=== PATIENT | female | born 1980 | race Caucasian/White ===

== ENCOUNTER 2016-03-17 05:41 | Emergency (ER) | payer OTHER ==
[~2016-03-17] VITALS: Ht 172.7 cm; Wt 111.4 kg
[~2016-03-17 05:41] MED LIST: ASCO-294 PO; CEPH-512 PO; DOCU-41 PO; FERR-83 PO; FOLI1TAB18 PO; HYDR-4003 PO; IBUP800T28 PO; MAGN400T4 PO; PNV91TAB3 PO
[2016-03-17 05:45] VITALS: BP 129/94; PULSE 83; RESP 18; O2SAT 97
--- NOTE | 2016-03-17 06:12 | ED.REPORT ---
HPI-Headache Date of Service Mar 17, 2016 ED Provider: Getachew Gasca MD The patient is a 35 year old female with history of migraines who presents to the emergency department complaining of a headache that began suddenly 2 hours prior to arrival. Her pain is located behind her eyes. She describes the pain as "throbbing" and "sharp." She has also experienced nausea, vomiting, and photophobia. Her pain is similar to her previous migraines. She has not taken any medication to alleviate her symptoms. She has not fallen or hit her head. She is not taking any blood thinners. She denies vision changes, numbness, tingling, weakness, confusion. Her LNMP was 2 weeks ago. Nursing Notes Stated Complaint: HEADACHE Chief Complaint: Headache Nursing Notes Reviewed: Yes Allergies: Coded Allergies: oxycodone HCl (Verified Allergy, Mild, vomiting, 03/17/16) marijuana (Verified Allergy, Unknown, seizure, breathing problems, 03/17/16 ) Uncoded Allergies: CONTROL PILL (Allergy, Mild, RASH, 07/05/14) Scheduled Ascorbate Calcium (Vitamin C) 500 Mg Tablet 500 MG PO DAILY Take with Iron. Cephalexin (Keflex) 500 Mg Capsule 500 MG PO TID Cephalexin (Keflex) 500 Mg Capsule 500 MG PO QID Ferrous Sulfate (Ferrous Sulfate) 325 Mg Tablet 325 MG PO DAILY Folic Acid (Folic Acid) 1 Mg Tablet 1 MG PO DAILY Magnesium Oxide (Magnesium Oxide) 400 Mg Tablet 400 MG PO BID Scheduled PRN Docusate Sodium (Colace) 100 Mg Capsule 100 MG PO BID PRN PRN For Constipation Hydrocodone-Acetaminophen 5-325 mg (Hydrocodone-Acetaminophen 5-325 mg) 1 Each Tablet 1 TABLET PO Q6H PRN PRN For Pain Ibuprofen (Ibuprofen) 800 Mg Tablet 800 MG PO TID PRN PRN For Pain Ondansetron ODT (Zofran ODT) 4 Mg Tablet 4 MG PO Q4H PRN PRN For Nausea Miscellaneous Medications Pnv95/Ferrous Fumarate/FA ( Caplet) 28 Mg Iron-800 Mcg Tablet 1 EACH PO General Time Seen by MD: 06:10 Chief Complaint Headache Hx Obtained From: Patient Arrived By: Walk-in Sudden in Onset?: Yes Onset Occurred: 1 - 4 hours ago Symptom Duration: Since onset Location: : Retro orbital Quality: Painful, Sharp, Throbbing Severity: Current: Moderate Severity: Maximum: Moderate Recent Healthcare: No recent hospitalization Similar Sx Previous: Yes Past Medical History Past Medical History R ectopic PCOS Nephrolithiasis Kidney infection x1 Ovarian cyst summer 2013, with hospitalization for possible rupture Seizure (last 2012) site infection Migraines Past Surgical History Shoulder surgery Reports: , Cholecystectomy, Tonsillectomy Family History Noncontributory Smoking History Former Smoker Social History Alcohol Use: "Social" Drug Use: Denies drug use Other Social History: Local resident Occupation lives with boyfriend, work at [employer] Ambulatory Status Independent Review of Systems Eyes: Reports: Photophobia, Denies: Blurred bilateral, Diplopia, Visual loss bilateral GI: Reports: Nausea, Vomiting Neurologic: Reports: Headache, Denies: Confusion, Focal weakness, Numbness, Problem walking, Slurred speech , Vision change, Weakness Complete sys rev & neg: except as marked. Physical Exam Initial Vital Signs Vital Signs (First) Date Time Temp Pulse Resp B/P Pulse Ox O2 Delivery O2 Flow Rate FiO2 03/17/16 05:45 36.8 83 18 129/94 97 Room Air Initial VS: Reviewed ENT: Mucous membranes moist, Conjunctiva normal, No scleral icterus Respiratory: Breath sounds normal, Clear to auscultation, No respiratory distress Cardiovascular: Regular rate & rhythm, Heart sounds normal, Intact distal pulses Abdomen / GI: Soft, Non-tender, No guarding, No rebound, No distention Lymphatic: No lymphadenopathy Extremities: Vascular intact, Neuro intact, No swelling, No tenderness Skin: Warm, Dry, No cyanosis Psychiatric: Mood/affect normal, Behavior normal, Normal thought content General/Constitutional: Awake, Alert Head / Eyes: Atraumatic, Normocephalic, PERRL, EOMI, No nystagmus, No photophobia, Conjunctiva NL, Temporal arteries NL Neck: Atraumatic, Supple, No meningismus, Full range of motion, No swelling, Non-tender, No masses Neurologic: Oriented X3, Speech NL, No motor deficits, No sensory deficits, CN II - XII intact, Cerebellar NL, Memory NL Speech is fluent Lower Extremity / Pelvis / MS: No swelling, Non-tender, Neurologic intact, Vascular intact, No edema No calf swelling or tenderness. Re-Eval/Medical Decision Med Decision/Clinical Course In summary, the patient is a 35-year-old female with past medical history significant for migraine headaches, who presents with headache that is typical in nature to her previous migraines. Our primary and secondary assessment reveals an awake, alert patient in no acute distress. Hemodynamically stable and afebrile. Exam reveals normal neurologic exam. Suspect the patient's headache represents a migraine or tension type headache. Considered other causes of headache to include: Subdural hemorrhage, subarachnoid hemorrhage, [employer] tumor, meningitis, encephalitis, venous sinus thrombosis, dissection, temporal arteritis, intracranial hypertension ( psuedotumor cerebri), sinusitis or cervicalgia, although these are less likely based on the history, exam findings as noted above. Based on this, I feel that further imaging would be low yield and is not warranted at this time. Here in the emergency department the patient was treated with 1 L of normal saline, 30 mg of IV Toradol, 25 mg of IV Benadryl and 10 mg of IV Reglan. Thereafter, she reported significant subjective improvement. Discussed the risks and benefits of this with the patient who is in agreement. Also discussed with the patient at length that if symptoms change, worsen, or persist, should return to the ER for reevaluation. They understand and agree with the plan. Given the patient's workup, feel they are safe for discharge. Source of Hx: Old records Re-Evaluation/Progress : Time of Eval: 07:24 Re-Evaluation/Progress Note: Rechecked the patient, she is feeling much better. Discussed plan for discharge. All questions were addressed. Counseled Regarding: Diagnosis, Need for follow-up, When/why to return to ED Discharge & Departure Impression: Primary Impression: Migraine Migraine type: unspecified Status migrainosus presence: without status migrainosus Intractability: not intractable Qualified Code: G43.909 - Migraine, unspecified, not intractable, without status migrainosus Additional Impressions: Nausea Light sensitivity Disposition: Home Discharge Condition All VS Reviewed: Yes Condition: Stable Patient Instructions: Migraine Headache (ED) Additional Instructions: Thank you for seeking care at the emergency room. It is difficult for us to make definitive diagnoses in the ED but we believe that you are experiencing your typical migraine Our primary goal today in the ED was to evaluate you for any life-threatening conditions. Your evaluation was reassuring. You will be discharged with a prescription for Zofran. You should follow-up with your primary doctor in the next week. You should return to the ED immediately if you develop increased pain, vomiting , fever, vision changes, dizziness, lightheadedness, numbness, weakness or any other concerning signs or symptoms. Thank you for letting us partake in your care today. Referrals: Lit Diaz MD (Family) Scribe Attestation Portions of this note were transcribed by Dinorah Collins. I, Dr. Gasca personally performed the history, physical exam and medical decision-making; I reviewed and confirmed the accuracy of the information in the transcribed note. Signed by: Deisi Baer, 03/17/2016 and 0730. Getachew Gasca MD Mar 17, 2016 06:12 Dinorah Collins Mar 17, 2016 06:27
[2016-03-17] MEDS ORDERED: 0.9% Sodium Chloride 1,000 ML IV ONE (06:37)
[2016-03-17] MEDS ORDERED: MetoCLOpramide 5 mg/mL 2 mL Inj IVPUSH ONE (06:40)
[2016-03-17 06:59] VITALS: BP 123/80; PULSE 80; RESP 12
[2016-03-17] MEDS ORDERED: ONDA4TAB9 PO (07:21)
[2016-03-17 07:41] VITALS: BP 122/72; PULSE 56; RESP 16
== END 2016-03-17 07:40 | disposition home or self-care (01) ==
LOC: SED 05:41
DX: G43.909 Migraine, unspecified, not intractable, without status migrainosus (principal); R11.0 Nausea; H53.149 Visual discomfort, unspecified; Z87.891 Personal history of nicotine dependence; Z88.5 Allergy status to narcotic agent; Z88.8 Allergy status to other drugs, medicaments and biological substances
CPT/HCPCS: 96361; 96374; 96375; 99284; J1200; J2765; J7030

== ENCOUNTER 2016-04-05 19:47 | Emergency (ER) | payer OTHER ==
[~2016-04-05] VITALS: Ht 172.7 cm; Wt 110.5 kg
[~2016-04-05 19:47] MED LIST changes: +ONDA4TAB9 PO
[2016-04-05 19:55] VITALS: BP 132/82; PULSE 79; RESP 16; O2SAT 99
[2016-04-05 21:39] LABS: BASOPHILS % (AUTO) 0.4 % (0-3); EOSINOPHILS % (AUTO) 2.5 % (0-5); MONOCYTES % (AUTO) 7.2 % (4-12); Mean Corpuscular Hemoglobin 29.7 pg (27.0-35.0); Mean Corpuscular Volume 86.8 fL (81-100); NEUTROPHILS % (AUTO) 61.9 % (40-74); Platelet Count 398 bil/L (150-400)
[2016-04-05] MEDS ORDERED: HYDROmorphone 0.5 mg/0.5 mL iSecure Syringe IVPUSH ONE (21:50)
[2016-04-05] MEDS ORDERED: MetoCLOpramide 5 mg/mL 2 mL Inj IVPUSH ONE (21:50)
[2016-04-05] MEDS ORDERED: 0.9% Sodium Chloride 1,000 ML IV ONE (21:50)
--- NOTE | 2016-04-05 21:53 | ED.REPORT ---
HPI-Headache Date of Service Apr 05, 2016 ED Provider: Jefferson Jason DO A 35 year old female with a medical history including migraines, PCOS, and seizures presents to the ED from urgent care with a worsening headache that began "a couple of days ago." The pain is centralized behind her left eye with radiation to her face and associated photophobia. This headache is dissimilar from her previous migraines. Nursing Notes Stated Complaint: L SIDE HEAD/FACE PAIN Chief Complaint: Head, Face, Neck Trauma Nursing Notes Reviewed: Yes Allergies: Coded Allergies: oxycodone HCl (Verified Allergy, Mild, vomiting, 03/17/16) marijuana (Verified Allergy, Unknown, seizure, breathing problems, 03/17/16 ) Uncoded Allergies: CONTROL PILL (Allergy, Mild, RASH, 07/05/14) Scheduled Ascorbate Calcium (Vitamin C) 500 Mg Tablet 500 MG PO DAILY Take with Iron. Cephalexin (Keflex) 500 Mg Capsule 500 MG PO TID Cephalexin (Keflex) 500 Mg Capsule 500 MG PO QID Ferrous Sulfate (Ferrous Sulfate) 325 Mg Tablet 325 MG PO DAILY Folic Acid (Folic Acid) 1 Mg Tablet 1 MG PO DAILY Magnesium Oxide (Magnesium Oxide) 400 Mg Tablet 400 MG PO BID Scheduled PRN Docusate Sodium (Colace) 100 Mg Capsule 100 MG PO BID PRN PRN For Constipation Hydrocodone-Acetaminophen 5-325 mg (Hydrocodone-Acetaminophen 5-325 mg) 1 Each Tablet 1 TABLET PO Q6H PRN PRN For Pain Ibuprofen (Ibuprofen) 800 Mg Tablet 800 MG PO TID PRN PRN For Pain Ondansetron ODT (Zofran ODT) 4 Mg Tablet 4 MG PO Q4H PRN PRN For Nausea Miscellaneous Medications Pnv95/Ferrous Fumarate/FA ( Caplet) 28 Mg Iron-800 Mcg Tablet 1 EACH PO General Time Seen by MD: 21:37 Chief Complaint Headache Hx Obtained From: Patient Arrived By: Walk-in Sudden in Onset?: No Onset Occurred: 3 days ago ("a couple of days") Symptom Duration: Since onset Location: : Frontal left: Retro orbital Quality: Painful Severity: Current: Moderate Severity: Maximum: Moderate Associated with: Reports: Photophobia, Denies: Fever Pertinent Negative: Relieved by nothing Related History: Reports: Headache, migraine hx, Seizure disorder Recent Healthcare: Recent doctor visit Similar Sx Previous: No Past Medical History Past Medical History R ectopic PCOS Nephrolithiasis Kidney infection x1 Ovarian cyst summer 2013, with hospitalization for possible rupture Seizure (last 2012) site infection Migraines Past Surgical History Shoulder surgery Reports: , Cholecystectomy, Tonsillectomy Family History Noncontributory Smoking History Former Smoker Social History Alcohol Use: "Social" Drug Use: Denies drug use Other Social History: Local resident Occupation lives with boyfriend, work at [employer] Ambulatory Status Independent Review of Systems Review of Systems Note: + Left-sided facial pain Constitutional: Denies: Fever Eyes: Reports: Photophobia GI: Denies: Diarrhea, Vomiting Neurologic: Reports: Headache Complete sys rev & neg: except as marked. Respiratory: Denies: Non-productive cough, Shortness of breath Physical Exam Initial Vital Signs Vital Signs (First) Date Time Temp Pulse Resp B/P Pulse Ox O2 Delivery O2 Flow Rate FiO2 04/05/16 19:55 36.4 79 16 132/82 99 Room Air Initial VS: Reviewed ENT: Conjunctiva normal, No scleral icterus Respiratory: Breath sounds normal, Clear to auscultation, No respiratory distress Cardiovascular: Regular rate & rhythm, Heart sounds normal Skin: Warm, Dry, No cyanosis Psychiatric: Mood/affect normal, Behavior normal, Normal thought content General/Constitutional: Awake, Alert Head / Eyes: Atraumatic, Normocephalic, PERRL, EOMI Neck: Supple, Full range of motion Neurologic: Oriented X3, Speech NL, No motor deficits, No sensory deficits, CN II - XII intact Interpretation & Diagnostics Lab Results Interpretation Result Diagram: 04/05/16212904/05/162129 Test 04/05/16 21:30 White Blood Count 7.2th/mm3 (3.8-10.1) Red Blood Count 4.54mil/mm3 (3.90-5.20) Hemoglobin 13.5g/dL (12.0-15.6) Hematocrit 39.4% (35.0-46.0) Mean Corpuscular Volume 86.8fL (81-100) Mean Corpuscular Hemoglobin 29.7pg (27.0-35.0) Mean Corpuscular Hemoglobin Concent 34.3% (32.0-37.0) Red Cell Distribution Width 13.0% (12.3-15.4) Platelet Count 398bil/L (150-400) Neutrophils (%) (Auto) 61.9% (40-74) Lymphocytes (%) (Auto) 27.9% (14-46) Monocytes (%) (Auto) 7.2% (4-12) Eosinophils (%) (Auto) 2.5% (0-5) Basophils (%) (Auto) 0.4% (0-3) Sodium Level 140mEq/L (134-144) Potassium Level 4.0mEq/L (3.5-5.2) Chloride Level 101mEq/L (97-108) Carbon Dioxide Level 26mmol/L (18-29) Blood Urea Nitrogen 11mg/dL (6-20) Creatinine 0.75mg/dL (0.57-1.00) Estimat Glomerular Filtration Rate 127mL/min (>59) Glucose Level 96mg/dL (60-99) Calcium Level 9.0mg/dL (8.5-10.1) CT Head Interpretation CONCLUSION: Normal CT of the head without contrast. Transmitted to the ED by Musa Del Angel M.D. at 04/05/2016 - 11:52:45 PM PST Study: Head CT no contrast Interpretation / Wet Read by: Interpret - Radiologist Re-Eval/Medical Decision Med Decision/Clinical Course Gutierrez was medicated and her headache had some relief. It was down to a 6 out of 10. Her something about this that she just does not seem like a classic migraine however meningitis seems unlikely as well. Subarachnoid hemorrhage seems unlikely as well. She was discharged feeling somewhat better. I spoke with her the next day and the headache had returned. She has been taking ibuprofen. The pain seems to now come from the left side of her neck and the left side of her face. Perhaps she is dealing with a pinched nerve or something. Either way she is not been afforded much relief. This is atypical for her. I talked her about a lumbar puncture and she does not wish to undergo that at this time. I think that is reasonable considering she does not have a fever and she certainly did not have nuchal rigidity and she has a normal head CT. I am going to prescribe her Imitrex 25 mg tablets 1 every 8 hours as needed #15. [place] 06/19/2024 one to 2 every 6 hours as needed for the neck pain. 25 of these were prescribed. And 15 Zofran 4 mg tablets were provided prescribed as well. I told her not to breast-feed while she is taking any of this. Not to drive or drink alcohol consume acetaminophen while taking the [place]. She is going to send her significant other Joseluis and to pharmacy picking technician these prescriptions. He plans on pumping and wasting the breast milk while she is on these medications. She is going to feed her infant formula. She will not drivable taken the [place]. She will also call her doctor on Friday for follow- up this week for further evaluation of her headache syndrome. She did agree to return if she rubs a fever, neck stiffness or a thunderclap headache. Source of Hx: Old records Re-Evaluation/Progress : Time of Eval: 00:20 )( Patient Status: Condition improved, Moderate relief Re-Evaluation/Progress Note: Patient's pain has improved. Discussed with patient CT and lab results, diagnosis, and plan for discharge. Follow-up and return to the ER instructions given. Patient agrees with plan for care and all questions were addressed. Counseled Regarding: Diagnosis, Lab results, Need for follow-up, When/why to return to ED Discharge & Departure Impression: Primary Impression: Headache Headache type: unspecified Headache chronicity pattern: unspecified pattern Intractability: not intractable Qualified Code: R51 - Headache Disposition: Home Discharge Condition All VS Reviewed: Yes Condition: Stable Patient Instructions: Acute Headache (ED) Additional Instructions: Thank you for entrusting us with your care. Your labs and CT scan were reassuring. Rest tonight. Drink plenty of liquids to remain hydrated. Call your primary care provider tomorrow for a follow-up appointment. Return to the ER with any new or worsening symptoms including fever or thunderclap headache. Referrals: NOPCP (PCP) Lit Diaz MD (Family) Deisi Attestation Portions of this note were transcribed by Tricia Vega. I, Dr. Jason, personally performed the history, physical exam, and medical decision-making; I reviewed and confirmed the accuracy of the information in the transcribed note. Signed by: Deisi Greenberg, 04/06/2016, 01:08 copies to: Lit Diaz MD, Todd P DO Apr 05, 2016 21:53 TRICIA VEGAb 17, 2017 22:01
[2016-04-06] MEDS ORDERED: Dexamethasone Inj 10 MG in 0.9% Sodium Chloride-Pha MIX 50 ML IV ONE ×2
[2016-04-06 00:50] VITALS: BP 108/69; PULSE 66; RESP 18; O2SAT 98
--- NOTE | 2016-04-06 08:10 | DRSVH ---
PROCEDURE: CT BRAIN WITHOUT CONTRAST ([id number]) INDICATIONS: retrobulbar headache, TECHNIQUE: Noncontrast 4.5 mm thick angled axial sections acquired from the foramen magnum to the vertex, with c oronal reformats. COMPARISON: [facility], MR, BRAIN W/O CONTRAST, 09/28/2008, 12:45. FINDINGS: Image quality: Excellent. CSF spaces: Basal cisterns are patent. No extra-axial fluid collections. Ventricles are normal in size and shape. Brain: No midline shift. No intracranial masses or hemorrhage. Cavazos-white matter interface is norm al. Skull and face: Calvarium and visualized facial bones are intact, without suspicious lesions. Sinuses: Visualized sinuses and mastoids are clear. IMPRESSION: 1. No acute intracranial process. Dictated by: Kristina Monroe M.D. on 04/06/2016 at 8:07 Approved by: Kristina Monroe M.D. on 04/06/2016 at 8:08
== END 2016-04-06 00:51 | disposition home or self-care (01) ==
LOC: SED 19:47
DX: R51 Headache (principal); H53.132 Sudden visual loss, left eye; Z87.891 Personal history of nicotine dependence; Z88.5 Allergy status to narcotic agent; Z88.8 Allergy status to other drugs, medicaments and biological substances
CPT/HCPCS: 36415; 70450; 80048; 85025; 96361; 96374; 96375; 99285; J1100; J1170; J1200; J2060; J2765; J7030

== ENCOUNTER 2016-04-13 20:05 | Emergency (ER) | payer OTHER ==
[~2016-04-13] VITALS: Ht 172.7 cm; Wt 110.0 kg
[2016-04-13 20:08] VITALS: BP 120/83; PULSE 74; RESP 20; O2SAT 98
[2016-04-13] MEDS ORDERED: Dexamethasone 10 mg/mL Inj IVPUSH ONE (20:50)
[2016-04-13] MEDS ORDERED: MetoCLOpramide 5 mg/mL 2 mL Inj IVPUSH ONE (20:50)
[2016-04-13 21:00] LABS: BASOPHILS % (AUTO) 0.5 % (0-3); MONOCYTES % (AUTO) 5.3 % (4-12); Mean Corpuscular Hemoglobin 29.9 pg (27.0-35.0); Mean Corpuscular Volume 86.3 fL (81-100); NEUTROPHILS % (AUTO) 59.1 % (40-74); Platelet Count 407 bil/L (150-400)
[2016-04-13] MEDS ORDERED: 0.9% Sodium Chloride 1,000 ML IV ONE (21:05)
[2016-04-13] MEDS ORDERED: HYDROmorphone 0.5 mg/0.5 mL iSecure Syringe IVPUSH ONE (21:15)
[2016-04-13 21:22] LABS: ERYTHROCYTE SEDIMENTATION RATE 26 mm/hr (0-32)
[2016-04-13] MEDS ORDERED: _LORazepam 1 mg Tablet PO PRN (22:15)
--- NOTE | 2016-04-13 22:42 | ED.REPORT ---
HPI-Headache Date of Service Apr 13, 2016 ED Provider: WillChase Antelmo OJEDA 35yoF with PMH remarkable for migraine headaches presents with left sided headache for more than one week. The patient was seen in the [facility] ED on 04/05 for this same headache and given IV medication and told to follow up with her PCP. Since that time the patient continues to have left sided headache. The pain seems to start in her left upper cervical spine and radiates up the left side of her head. Flexion and extension of the cervical spine seems to increase the pain. She also states that she has been using computers that are little bit higher mounted than normal and she finds herself looking up. This brings on the pain. She has not had an objective fever. Her neck hurts but it is not stiff. She does have occasional numbness of her left hand. She also has occasional pain in her right shoulder however she has had prior shoulder surgery. She has not had a rash. She was seen here last week and had a normal CAT scan. He has been afforded relief with the [place] however with the [place] were soft neck pain and headache return. She has not had any vomiting, syncope or thunderclap headache. Nursing Notes Stated Complaint: MIGRAINE Chief Complaint: Headache Nursing Notes Reviewed: Yes Allergies: Coded Allergies: oxycodone HCl (Verified Allergy, Mild, vomiting, 03/17/16) marijuana (Verified Allergy, Unknown, seizure, breathing problems, 03/17/16 ) Uncoded Allergies: CONTROL PILL (Allergy, Mild, RASH, 07/05/14) Scheduled Ascorbate Calcium (Vitamin C) 500 Mg Tablet 500 MG PO DAILY Take with Iron. Cephalexin (Keflex) 500 Mg Capsule 500 MG PO TID Cephalexin (Keflex) 500 Mg Capsule 500 MG PO QID Ferrous Sulfate (Ferrous Sulfate) 325 Mg Tablet 325 MG PO DAILY Folic Acid (Folic Acid) 1 Mg Tablet 1 MG PO DAILY Magnesium Oxide (Magnesium Oxide) 400 Mg Tablet 400 MG PO BID Prednisone (PredniSONE Dose Adrian) 10 Mg Tab.ds.pk 1 TABLET PO UD TAKE DIRECTED ON PACKAGE OR BY PHYSICIAN Scheduled PRN Docusate Sodium (Colace) 100 Mg Capsule 100 MG PO BID PRN PRN For Constipation Hydrocodone-Acetaminophen 5-325 mg (Hydrocodone-Acetaminophen 5-325 mg) 1 Each Tablet 1 TABLET PO Q6H PRN PRN For Pain Ibuprofen (Ibuprofen) 800 Mg Tablet 800 MG PO TID PRN PRN For Pain Lorazepam (Lorazepam) 1 Mg Tablet 1 MG PO TID PRN PRN neck stiffness Metoclopramide (Metoclopramide) 10 Mg Tablet 10 MG PO QID PRN PRN Headache Ondansetron ODT (Zofran ODT) 4 Mg Tablet 4 MG PO Q4H PRN PRN For Nausea Miscellaneous Medications Pnv95/Ferrous Fumarate/FA ( Caplet) 28 Mg Iron-800 Mcg Tablet 1 EACH PO General Time Seen by MD: 10:20 Chief Complaint Migraine headache Hx Obtained From: Patient Arrived By: Walk-in Sudden in Onset?: No Onset Occurred: More than a week ago... Symptom Duration: Since onset Location: : Frontal left: Occipital left: Parietal left: Temporal left Quality: Same as prior, Painful, Sharp, Stabbing, Throbbing Radiation: : Neck, left lateral: Neck, posterior Severity: Current: Severe Severity: Maximum: Severe Recent Healthcare: Recent doctor visit, Recent testing, Previous diagnosis, Prior workup Similar Sx Previous: Yes Risk-Headache )( SAH Risk Stratification No 1st degree relative, No Anticoagulation therapy, No Coagulopathy, No Melinda- Danlos syndrome, No Hypertension, No Marfan's syndrome, No Neurofibromatosis, No Polycystic kidney disease, No Prior SAH RF Statements: Risk factors reviewed, No risk factors )( IC Mass Risk Stratification No HIV, No Malignancy RF Statements: Risk factors reviewed, No risk factors Past Medical History Past Medical History R ectopic PCOS Nephrolithiasis Kidney infection x1 Ovarian cyst summer 2013, with hospitalization for possible rupture Seizure (last 2012) site infection Migraines Past Surgical History Shoulder surgery Reports: , Cholecystectomy, Tonsillectomy Family History Noncontributory Smoking History Former Smoker Social History Alcohol Use: "Social" Drug Use: Denies drug use Other Social History: Local resident Occupation lives with boyfriend, work at [employer] Ambulatory Status Independent Review of Systems Basic Review of Systems Respiratory: No shortness of breath Cardiovascular: No chest pain, No dyspnea on exertion, No orthopnea, No parox noct dyspnea, No palpitations : No dysuria, No frequency Hematologic: No bleeding, No bruising Endocrine: No heat intolerance, No weight gain, No weight loss Allergy / Immune: No allergy Constitutional: Reports: Chills, Denies: Weakness - generalized Eyes: Reports: Blurred left, Eye pain left, Photophobia, Denies: Visual loss bilateral Ears / Nose / Throat: Reports: Nasal congestion, Denies: Hearing loss bilateral GI: Reports: Constipation (since start [place]), Denies: Abdominal pain, Diarrhea, Nausea, Vomiting Musculoskeletal: Reports: Neck pain, Denies: Extremity pain, Extremity swelling Skin: Denies Rash, Denies Swelling Neurologic: Reports: Dizziness, Headache, Denies: Spinning sensation, Syncope Complete sys rev & neg: except as marked. Physical Exam Initial Vital Signs Initial VS: Reviewed ENT: Mucous membranes moist, Conjunctiva normal, No scleral icterus Respiratory: Breath sounds normal, Clear to auscultation, No respiratory distress Cardiovascular: Regular rate & rhythm, Heart sounds normal, Intact distal pulses Abdomen / GI: Soft, Non-tender, No guarding, No rebound, No distention Back: No CVA tenderness Lymphatic: No lymphadenopathy Extremities: Vascular intact, Neuro intact, No swelling, No tenderness Skin: Warm, Dry, No cyanosis Psychiatric: Mood/affect normal, Behavior normal, Normal thought content General/Constitutional: Awake, Alert Distress / Hydration: Positive: Distress moderate Appearance / Presentation: Negative: Apparent trauma/injury Head / Eyes: Normocephalic, PERRL, EOMI, No nystagmus, No periorbital redness, No periorbital swelling, No scleral icterus, Conjunctiva NL, Eyelids NL, Temporal arteries NL Pupils: Positive: Photophobia L, Photophobia R Neck: Atraumatic, Supple, No meningismus, Full range of motion, No swelling, Non-tender, No JVD Meningeal Signs / ROM: Negative: Nuchal rigidity present Neck / Muscle Tenderness: Positive: Paraspinal L... (Mild tenderness to the left paraspinal muscle mass. With palpation and range of motion of this area we do have an increased headache.) Neurologic: Oriented X3, Speech NL, No motor deficits, No sensory deficits, CN II - XII intact, Cerebellar NL, Memory NL, Gait NL ENT: Airway patent, Mucous membranes moist, Pharynx NL, No sinus tenderness Respiratory / Chest: Breath sounds NL, Breath sounds = bilat, No respiratory distress, No rales, No rhonchi, No wheezing Cardiovascular: Heart rate NL, Regular rhythm, Heart sounds NL, Peripheral circulation NL Abdomen: Soft, Non-tender, No guarding, No rebound Skin: Color NL, No rash, Warm, Dry, Intact, No swelling Psychiatric: Affect NL, Mood NL, Judgment/insight NL, Thought content NL Abnormal Mood/Affect: Positive: Apathetic Interpretation & Diagnostics Lab Results Interpretation Test 04/13/16 20:50 White Blood Count 7.3th/mm3 (3.8-10.1) Red Blood Count 4.45mil/mm3 (3.90-5.20) Hemoglobin 13.3g/dL (12.0-15.6) Hematocrit 38.4% (35.0-46.0) Mean Corpuscular Volume 86.3fL (81-100) Mean Corpuscular Hemoglobin 29.9pg (27.0-35.0) Mean Corpuscular Hemoglobin Concent 34.6% (32.0-37.0) Red Cell Distribution Width 12.6% (12.3-15.4) Platelet Count 407bil/L (150-400) Neutrophils (%) (Auto) 59.1% (40-74) Lymphocytes (%) (Auto) 32.0% (14-46) Monocytes (%) (Auto) 5.3% (4-12) Eosinophils (%) (Auto) 3.0% (0-5) Basophils (%) (Auto) 0.5% (0-3) Erythrocyte Sedimentation Rate 26mm/hr (0-32) Hold Purple Top Tube Received (Received) Hold Blue Top Tube Received (Received) Sodium Level 138mEq/L (134-144) Potassium Level 3.9mEq/L (3.5-5.2) Chloride Level 98mEq/L (97-108) Carbon Dioxide Level 27mmol/L (18-29) Blood Urea Nitrogen 12mg/dL (6-20) Creatinine 0.93mg/dL (0.57-1.00) Estimat Glomerular Filtration Rate 99mL/min (>59) Glucose Level 112mg/dL (60-99) Calcium Level 9.0mg/dL (8.5-10.1) Total Bilirubin 0.2mg/dL (0.0-1.2) Aspartate Amino Transf (AST/SGOT) 19U/L (0-50) Alanine Aminotransferase (ALT/SGPT) 19U/L (0-32) Alkaline Phosphatase 85U/L (25-150) C-Reactive Protein 0.5mg/dL (0.0-0.5) Total Protein 7.4g/dL (6.4-8.4) Albumin 4.4g/dL (3.4-5.0) Procalcitonin 0.03ng/mL (0.00-0.08) Hold [place] Top Tube Received (Received) Hold [place] Top Tube Received (Received) Re-Eval/Medical Decision Med Decision/Clinical Course 35yoF with history of migraines presents with more than a week of left sided headache and neck pain. The patient on physical exam has photophobia and pain on palpation of her neck and ROM of her neck, without focal neurological deficit. The labs show no leukocytosis no elevated procalcitonin or increased ESR or CRP. The patient's headache improved after IV Reglan, Benadryl, and Dexamethasone, however her neck pain continued. The patient's headache improved after OMM with occipital release. Differential diagnosis included Migraine versus cervicogenic headache. Much less likely meningitis given labs and patient condition. The patient will be sent with Lorazepam. She will be refered to the [facility] residency clinic for ED follow up and refered to [facility] neurology. Counseled Regarding: Diagnosis, Lab results, Need for follow-up, When/why to return to ED Discharge & Departure Impression: Primary Impression: Migraine Migraine type: without aura Status migrainosus presence: without status migrainosus Intractability: not intractable Qualified Code: G43.009 - Migraine without aura, not intractable, without status migrainosus Additional Impression: Headache, cervicogenic Ruled Out: Meningitis Disposition: Home Discharge Condition All VS Reviewed: Yes Condition: Stable Patient Instructions: Migraine Headache (ED) Additional Instructions: During you visit to [facility] Emergency Department we obtained blood work for infectious markers, hemoglobin levels, and electrolytes. All your lab values were within normal limits and showed no acute processes or abnormalities. Your vital signs were stable and safe for discharge. We will send you home with - Lorazepam muscle relaxant for neck stiffness - Reglan for headache to be combined with over the counter Benadryl - Prednisone for headaches When taking Lorazepam, Reglan and Benadryl medications DO NOT drive, DO NOT drink alcohol. You may also try OTC pain medication like Tylenol or Ibuprofen or Aleve for additive effects. Do not hesitate to call emergency services or your primary care physician if you experience any of the following. - High unrelenting fevers. - worsening headache - any unilateral weakness or worsening coordination - any worsening changes in vision - Uncontrolled vomiting. - Severe low blood pressure - worsening dizziness or loss of consciousness. - Chest pain or severe shortness of breath. Included is the [facility] residency clinic information please schedule an ED Follow up as soon as possible following your emergency department visit for medication checks and general well-being. From the [facility] residency clinic ask to be referred to [facility] Neurology to be evaluated for your chronic headaches, the provider may also want to order and MRI of your head and neck. Referrals: NOPCP (PCP) Breanne Velez MD [facility] Residency [facility] Attending Statement I, Jefferson Jason, personally took a history performed a physical examination. I have taken care of [place] in the past. I spoke with her on the phone and I saw her last week for the headache. She continues to have headache that seems to be emanating from her left upper neck. Pain is fully reproducible with range of motion of the neck as well as palpation. She does not have clinical meningitis. She does not have any nuchal rigidity. Her cranial nerves are intact. She has full range of motion of her neck however she does have tender paraspinal muscles in the upper left. She does have also symptoms of a cervical radiculopathy. CBC was normal. C-reactive protein was normal. Sedimentation rate was less than 30 and her pro-calcitonin was negative. I think all these things taken together with the clinical picture adequately rule out bacterial meningitis. [place] concurs. She is very reticent to have an lumbar puncture anyways. Evidently she had very painful epidural. I do not think that a lumbar puncture would add anything to this right now she does not act whatsoever like she has a bacterial illness. I think that she has cervical spine disease. I think she is going to need an MRI to prove or disprove this. In the meantime we will treat her symptomatically. We will refer her to the [facility] and then refer for neurology. She will come back if she has any problems or any worsening symptoms. copies to: [facility] Philip Reyes DO Apr 13, 2016 21:18 Jefferson Jason DO Apr 13, 2016 22:47 Chase Solis DO Apr 22, 2016 12:40 think that a lumbar puncture would add anything to this right now she does not act whatsoever like she has a bacterial illness. I think that she has cervical spine disease. I think she is going to need an MRI to prove or disprove this. In the meantime we will treat her symptomatically. We will refer her to the [facility] and then refer for neurology. She will come back if she has any problems or any worsening symptoms. copies to: [facility] Residency [facility] Philip Reyes DO Apr 13, 2016 21:18 Jefferson Jason DO Apr 13, 2016 22:47
[2016-04-13] MEDS ORDERED: LORA1TAB PO (22:46)
[2016-04-13] MEDS ORDERED: METO10TA3 PO (22:46)
[2016-04-13] MEDS ORDERED: PRED10TA21 PO (22:46)
[2016-04-13 23:06] VITALS: BP 120/74; PULSE 60; RESP 20; O2SAT 98
[2016-04-14] MEDS ORDERED: Sodium Chloride LOK Flush 10 mL Syringe IVFLUSH SCH (00:30)
== END 2016-04-13 23:09 | disposition home or self-care (01) ==
LOC: SED 20:05
DX: G43.009 Migraine without aura, not intractable, without status migrainosus (principal); G44.89 Other headache syndrome; Z98.890 Other specified postprocedural states; Z87.891 Personal history of nicotine dependence; Z88.5 Allergy status to narcotic agent; Z88.8 Allergy status to other drugs, medicaments and biological substances
CPT/HCPCS: 36415; 80053; 82308; 85025; 85651; 86140; 96361; 96374; 96375; 99284; J1100; J1170; J1200; J2060; J2765; J7030

== ENCOUNTER 2016-04-28 17:28 | Emergency (ER) | payer OTHER ==
[~2016-04-28] VITALS: Ht 172.7 cm; Wt 109.1 kg
[~2016-04-28 17:28] MED LIST changes: +LORA1TAB PO; +METO10TA3 PO; +PRED10TA21 PO
[2016-04-28 17:36] VITALS: BP 110/72; PULSE 77; RESP 18; O2SAT 99
[2016-04-28] MEDS ORDERED: SERT50TA PO (17:41)
[2016-04-28] MEDS ORDERED: CITA40TA13 PO (17:41)
[2016-04-28] MEDS ORDERED: TRAZ-115 PO (17:41)
[2016-04-28 18:13] LABS: BASOPHILS % (AUTO) 0.2 % (0-3); EOSINOPHILS % (AUTO) 1.6 % (0-5); MONOCYTES % (AUTO) 6.1 % (4-12); Mean Corpuscular Hemoglobin 29.2 pg (27.0-35.0); Mean Corpuscular Volume 85.9 fL (81-100); NEUTROPHILS % (AUTO) 64.9 % (40-74); Platelet Count 352 bil/L (150-400)
[2016-04-28 18:27] LABS: Magnesium 1.9 mg/dL (1.6-2.6)
[2016-04-28 18:59] LABS: APPEARANCE,URINE CLEAR (CLEAR,HAZY); COLOR,URINE YELLOW (YELLOW)
[2016-04-28 19:00] LABS: OCCULT BLOOD,URINE TRACE (NEGATIVE); PH,URINE 6.5 (5.0-8.0); UROBILINOGEN,URINE NORMAL (NORMAL)
--- NOTE | 2016-04-28 20:21 | ED.REPORT ---
HPI-Abd Pain F Under 40 Date of Service Apr 28, 2016 ED Provider: Carlos Dunlap MD Pt is a 35 y/o female presenting to the ED c/o lower abdominal cramping pain onset today. She c/o associated nausea, bilateral low back pain. She denies constipation, vomiting, dysuria, vaginal bleeding, vaginal discharge, dyspepsia , bloody or melena stool. She had similar pain when she experienced a ruptured ovarian cyst on the right side. Nursing Notes Stated Complaint: ABDOMINAL PAIN Chief Complaint: Female Abdominal Pain Nursing Notes Reviewed: Yes Allergies: Coded Allergies: oxycodone HCl (Verified Allergy, Mild, vomiting, 04/28/16) marijuana (Verified Allergy, Unknown, seizure, breathing problems, 04/28/16 ) Uncoded Allergies: CONTROL PILL (Allergy, Mild, RASH, 07/05/14) Scheduled Citalopram (Citalopram) 40 Mg Tablet 40 MG PO DAILY Sertraline HCl (Zoloft) 50 Mg Tablet 50-100 MG PO DAILY Tamsulosin (Flomax) 0.4 Mg Capsule 0.4 MG PO DAILY Trazodone (Trazodone) 50 Mg Tablet 50 MG PO HS Scheduled PRN Hydrocodone-Acetaminophen 5-325 mg (Hydrocodone-Acetaminophen 5-325 mg) 1 Each Tablet 1 TABLET PO Q4H PRN PRN For Pain General Time Seen by MD: 20:16 Chief Complaint Abdominal pain Hx Obtained From: Patient Arrived By: Walk-in Sudden in Onset?: No Onset Occurred: 5 - 8 hours ago Symptom Duration: Since onset Progression since Onset: Unchanged Location: : Abdomen lower Quality: Painful Severity: Current: Mild Severity: Maximum: Mild Similar Sx Previous: Yes Past Medical History Past Medical History R ectopic PCOS Nephrolithiasis Kidney infection x1 Ovarian cyst summer 2013, with hospitalization for possible rupture Seizure (last 2012) site infection Migraines Past Surgical History Shoulder surgery Reports: , Cholecystectomy, Tonsillectomy Family History Noncontributory Smoking History Former Smoker Social History Alcohol Use: "Social" Drug Use: Denies drug use Other Social History: Local resident Occupation lives with boyfriend, work at [employer] Ambulatory Status Independent Review of Systems Constitutional: Denies: Chills, Fever Respiratory: Denies: Non-productive cough, Shortness of breath Cardiovascular: Denies: Chest pain, Dyspnea on exertion GI: Reports: Abdominal pain, Nausea, Denies: Bloody/tarry stool, Vomiting Female: Denies: Vaginal bleeding - abnl, Vaginal discharge Complete sys rev & neg: except as marked. Physical Exam Initial Vital Signs Vital Signs (First) Date Time Temp Pulse Resp B/P Pulse Ox O2 Delivery O2 Flow Rate FiO2 04/28/16 17:36 36.5 77 18 110/72 99 Room Air Initial VS: Reviewed Head / Eyes: Atraumatic, Normocephalic, PERRL ENT: Mucous membranes moist, Conjunctiva normal, No scleral icterus Neck: Supple, Full range of motion Extremities: Vascular intact, Neuro intact, No swelling, No tenderness Skin: Warm, Dry, No cyanosis Neurologic: Alert, Oriented, Nonfocal Psychiatric: Mood/affect normal, Behavior normal, Normal thought content General/Constitutional: Awake, Alert, No acute distress, Cooperative, Not toxic appearing Appearance / Presentation: Positive: Uncomfortable Respiratory / Chest: Atraumatic, Breath sounds NL, Breath sounds = bilat, No respiratory distress, No rales, No rhonchi, No wheezing, No retractions, No stridor, No chest tenderness, No chest wall deformity, No crepitus Cardiovascular: Heart rate NL, Regular rhythm, Heart sounds NL, No gallop, No murmurs, No rubs, Cap refill not delayed, Peripheral circulation NL Abdomen: Atraumatic, Soft, No guarding, No rebound, No distention, No palpable mass Tenderness/Guarding/Rebound: Positive: Tender epigastric (mild), Tender suprapubic (mild) Back: Full range of motion, Painless range of motion, No CVA tenderness Female Genitourinary: 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 ([employer] Cynthia), Atraumatic, External genitalia NL, No bleeding, No discharge, Os closed Bilateral adnexal tenderness Interpretation & Diagnostics Lab Results Interpretation Result Diagram: 04/28/164 04/28/16 1754 Test 04/28/16 17:54 04/28/16 18:17 White Blood Count 8.6th/mm3 (3.8-10.1) Red Blood Count 4.32mil/mm3 (3.90-5.20) Hemoglobin 12.6g/dL (12.0-15.6) Hematocrit 37.1% (35.0-46.0) Mean Corpuscular Volume 85.9fL (81-100) Mean Corpuscular Hemoglobin 29.2pg (27.0-35.0) Mean Corpuscular Hemoglobin Concent 34.0% (32.0-37.0) Red Cell Distribution Width 12.9% (12.3-15.4) Platelet Count 352bil/L (150-400) Neutrophils (%) (Auto) 64.9% (40-74) Lymphocytes (%) (Auto) 27.2% (14-46) Monocytes (%) (Auto) 6.1% (4-12) Eosinophils (%) (Auto) 1.6% (0-5) Basophils (%) (Auto) 0.2% (0-3) Sodium Level 138mEq/L (134-144) Potassium Level 3.9mEq/L (3.5-5.2) Chloride Level 101mEq/L (97-108) Carbon Dioxide Level 25mmol/L (18-29) Blood Urea Nitrogen 9mg/dL (6-20) Creatinine 0.74mg/dL (0.57-1.00) Estimat Glomerular Filtration Rate 129mL/min (>59) Glucose Level 98mg/dL (60-99) Calcium Level 8.7mg/dL (8.5-10.1) Magnesium Level 1.9mg/dL (1.6-2.6) Total Bilirubin 0.3mg/dL (0.0-1.2) Aspartate Amino Transf (AST/SGOT) 15U/L (0-50) Alanine Aminotransferase (ALT/SGPT) 17U/L (0-32) Alkaline Phosphatase 76U/L (25-150) Total Protein 6.8g/dL (6.4-8.4) Albumin 3.9g/dL (3.4-5.0) Lipase 23U/L (13-60) Hold [place] Top Tube Received (Received) Urine Color Yellow (YELLOW) Urine Appearance Clear (CLEAR,HAZY) Urine pH 6.5 (5.0-8.0) Urine Specific [place] 1.010 (1.003-1.035) Urine Protein Negativemg/dL (NEG,TRACE) Urine Glucose (UA) Negativemg/dL (NEGATIVE) Urine Ketones Negativemg/dL (NEGATIVE) Urine Occult Blood Trace (NEGATIVE) Urine Nitrite Negative (NEGATIVE) Urine Bilirubin Negative (NEGATIVE) Urine Urobilinogen Normalmg/dL (NORMAL) Urine Leukocyte Esterase Negative (NEGATIVE) Urine RBC 0-2/hpf (0-2) Urine WBC 0-5/hpf (0-5) Urine Epithelial Cells Moderate/hpf (NONE-MOD) Urine Crystals None seen (NONE SEEN) Urine Bacteria Few/hpf (NONE-FEW) Urine Hyaline Casts None/lpf (NONE) Urine Granular Casts None seen (NONE SEEN) Urine Waxy Casts None seen (NONE SEEN) Urine Red Blood Cell Casts None seen (NONE SEEN) Urine White Blood Cell Casts None seen (NONE SEEN) Urine Mucus None seen (None Seen) Urine Trichomonas None seen (NONE SEEN) Urine Yeast None (NONE SEEN) Urinalysis Comment None Urine Culture Reflexed Not indicated X-Ray Abdominal Interpretation IMPRESSION: 1. Questionable right pulmonary nodule. Short interval followup or lordotic view recommended to further characterize findings. 2. No acute intra-abdominal findings. 3. Probable pelvic phlebolith, although distal ureteral stones cannot be entirely excluded. Dictated by: Fabiola Galan M.D. on 04/28/2016 at 20:57 Approved by: Fabiola Galan M.D. on 04/28/2016 at 21:00 Study: 4 view Interpretation / Wet Read by: Interpret - Radiologist CT Abd / Pelvis Interpretation Conclusion: No evidence of appendicitis. Bilateral nonobstructing nephrolithiasis. Mild wall thickening of the urinary bladder could be secondary to cystitis or underdistention. Transmitted to the ED by Minor Deshpande MD at 2404 Study type: Abdominal CT IV contrast Interpretation / Wet Read by: Interpret - Radiologist US Focused non-OB Pelvis Negative Exam Performed by: Allied health pract Exam Interpreted by: Allied health pract Re-Eval/Medical Decision Med Decision/Clinical Course Med Decision/Clinical Course: 35-year-old female presenting complaining of lower abdominal pain. CT scan and pelvis shows nonobstructing kidney stones. Her pain improved with morphine. Pelvic ultrasound showed no evidence of ovarian torsion or acute pathology. Vital signs stable. Patient will be discharged with Flomax and plans to follow up with her primary doctor and urology. Return precautions given. Counseled Regarding: Diagnosis, Lab results, Need for follow-up, When/why to return to ED Discharge & Departure Primary Impression: Nephrolithiasis Disposition: Home Discharge Condition All VS Reviewed: Yes Condition: Stable Patient Instructions: Nephrolithiasis (ED) Additional Instructions: Your CT scan showed signs of kidney stones. Take Hydrocodone as needed for severe breakthrough pain. Take Flomax as directed. Return to the emergency department for uncontrolled pain, high fever, persistent vomiting, or for other concerning symptoms. Follow-up with your doctor on Friday or Friday. A urology consult may be considered at that time. Referrals: Kai Beltrán (PCP) Deisi Attestation Portions of this note were transcribed by Sulaiman Hill. I, Dr. Dunlap, personally performed the history, physical exam and medical decision-making; I reviewed and confirmed the accuracy of the information in the transcribed note. Signed by Deisi Nagy, 04/28/162029 copies to: Kai Beltrán Ben M MD Apr 28, 2016 20:21 SULAIMAN HILL Apr 28, 2016 20:27
[2016-04-28] MEDS ORDERED: LidocaineVisc 2%:Antacid 1:1 10 mL Syringe PO ONE (20:35)
--- NOTE | 2016-04-28 21:02 | DRSVH ---
PROCEDURE: X-RAY ACUTE ABDOMINAL SERIES ([id number]) INDICATIONS: abd pain TECHNIQUE: One view chest and two views of the abdomen were acquired. COMPARISON: [facility], CT, CT KUB, 11/23/2014, 17:36. [facility], CT, [address] WITH CONTRAST, 11/09/2009, 18:00. [facility], CR, XR CHEST 1VW (PORTABLE), 01/28/2016, 21:42. FINDINGS: Surgical changes and devices: Cholecystectomy clips are present in the gallbladder fossa. Chest: There is a subtle pulmonary nodule projected over the lateral aspect of the upper right lung. Abdomen: Bowel gas pattern is normal. The multiple calcifications are present in the left hemipelvis which likely represent phleboliths. Visualized solid organ contours appear normal. Bones: A sclerotic focus is present within the right iliac wing. This is unchanged when compared with the CT KUB dated 11/23/14. IMPRESSION: 1. Questionable right pulmonary nodule. Short interval followup or lordotic view recommended to [facility] characterize findings. 2. No acute intra-abdominal findings. 3. Probable pelvic phlebolith, although distal ureteral stones cannot be entirely excluded. Dictated by: Fabiola Galan M.D. on 04/28/2016 at 20:57 Approved by: Fabiola Galan M.D. on 04/28/2016 at 21:00
[2016-04-28 21:10] VITALS: BP 124/74; PULSE 69; O2SAT 99
[2016-04-28] MEDS ORDERED: Ondansetron 2 mg/mL 2 mL Inj IVPUSH PRN (21:55)
[2016-04-28] MEDS ORDERED: TAMS0.4C98 PO (23:43)
[2016-04-28] MEDS ORDERED: HYDR-4003 PO (23:43)
[2016-04-28 23:53] VITALS: BP 129/78; PULSE 74; RESP 18; O2SAT 97
--- NOTE | 2016-04-29 09:29 | DRSVH ---
PROCEDURE: US PELVIC SONOGRAM WITH TRANSVAG AND DOPPLER, LIMITED INDICATIONS: pelvic pain TECHNIQUE: Real-time scanning was performed of the pelvic organs, with image documentation. Additional endovagi nal scanning was necessary due to incomplete visualization of the adnexal and endometrial structures by transabdominal scanning. COMPARISON: None. FINDINGS: (orthogonal measurements) Uterus size: 8.15 cm, 4.18 cm, 5.78 cm Endometrium thickness: 9.50 mm Right ovary size: 2.82 cm, 3.40 cm, 3.56 cm Left ovary size: 2.45 cm, 3.62 cm, 2.28 cm Transabdominal scanning: Limited scanning through the kidneys shows no hydronephrosis. No pathologi c free abdominal or pelvic fluid. Endovaginal scanning: Uterus: Uterus is normal in size and appearance. Endometrium is within normal physiologic limits. Ovaries: Within normal physiologic limits. IMPRESSION: Normal exam. Note: These findings are concordant with the preliminary interpretation. Dictated by: Glen ROWE Interpreted: Kristina Monroe MD on 04/29/2016 at 9:28 Transcribed by: BUCK on 04/29/2016 at 9:29 Approved by: Kristina Monroe M.D. on 04/29/2016 at 16:51
--- NOTE | 2016-04-29 10:13 | DRSVH ---
PROCEDURE: CT ABDOMEN AND PELVIS WITH CONTRAST ([id number]) INDICATIONS: Bilateral lower abdominal pain. TECHNIQUE: After the administration of intravenous contrast, 5 mm thick sections acquired from the diaphragm to the symphysis. 5 mm coronal and sagittal reformats were acquired. For radiation dose reduction, the following was used: automated exposure control, adjustment of mA and/or kV according to patient siz e. COMPARISON: [facility], CT, CT KUB, 11/23/2014, 17:36. [facility], CT, ABD/ PELVIS W/CON (PNL), 02/06/2014, 12:41. FINDINGS: Image quality: Excellent. ABDOMEN: Lung bases: Lung bases are clear. Heart size is normal. Solid organs: There is diffuse hepatic fatty infiltration. Liver and spleen are normal in size and e nhancement. Gallbladder is surgically absent. Biliary system is non dilated. Pancreas enhances nor robles. No adrenal nodules. Kidneys demonstrate normal size and enhancement, without hydronephrosis. There are small nonobstructive stones in kidneys, measuring 3 mm on the right and 2 mm on the left. Peritoneum and bowel: Bowel loops demonstrate normal wall thickness and caliber. Appendix is normal . No free fluid or air. Nodes and vessels: No retroperitoneal or mesenteric adenopathy by size criteria. Aorta and inferior vena cava are normal in size. Miscellaneous: No ventral hernias. PELVIS: Genitourinary: Mild bladder wall thickening is likely due to lack of distention. Uterus and ovaries are grossly normal. No pathological free fluid. Miscellaneous: No inguinal hernias or adenopathy. Bones: No suspicious bony lesions. No vertebral body compression fractures. IMPRESSION: 1. No definitive CT findings to explain lower abdominal pain. 2. Small nonobstructive renal calculi bilaterally. 3. Hepatic steatosis. 4. Normal appendix. No significant discrepancy with the seamless tube drawer radiology preliminary report. Dictated by: Kristen Bruno M.D. on 04/29/2016 at 10:03 Transcribed by: SHAQUILLE on 04/29/2016 at 10:12 Approved by: Kristen Bruno M.D. on 04/29/2016 at 19:42
== END 2016-04-28 23:54 | disposition home or self-care (01) ==
LOC: SED 17:28
DX: N20.0 Calculus of kidney (principal); E28.2 Polycystic ovarian syndrome; Z87.442 Personal history of urinary calculi; Z87.891 Personal history of nicotine dependence; Z88.5 Allergy status to narcotic agent; Z88.8 Allergy status to other drugs, medicaments and biological substances
CPT/HCPCS: 36415; 74022; 74177; 76830; 76856; 80053; 81000; 81025; 83690; 83735; 85025; 93976; 96361; 96374; 96375; 96376; 99285; J2270; J2405; Q9967

== ENCOUNTER 2016-05-31 10:13 | Emergency (ER) | payer OTHER ==
[~2016-05-31] VITALS: Ht 172.7 cm; Wt 111.4 kg
[~2016-05-31 10:13] MED LIST changes: -ASCO-294 PO; -CEPH-512 PO; +CITA40TA13 PO; -DOCU-41 PO; -FERR-83 PO; -FOLI1TAB18 PO; -IBUP800T28 PO; -LORA1TAB PO; -MAGN400T4 PO; -METO10TA3 PO; -ONDA4TAB9 PO; -PNV91TAB3 PO; -PRED10TA21 PO; +SERT50TA PO; +TAMS0.4C98 PO; +TRAZ-115 PO
[2016-05-31 10:15] VITALS: BP 126/84; PULSE 80; RESP 16; O2SAT 96
--- NOTE | 2016-05-31 10:33 | ED.REPORT ---
HPI-Headache Date of Service May 31, 2016 ED Provider: The patient is a 35 year old female who presents to the emergency department complaining of a migraine headache that began earlier this morning. She also complains of nausea, vomiting x2, and photophobia. Her last migraine headache was about 2 months ago. She denies weakness, numbness, speech changes or visual changes. For the last few days she has noticed a sore throat and this morning she noticed chest soreness that is worse with palpation. She denies cough. Nursing Notes Stated Complaint: MIGRAINE Chief Complaint: Headache Nursing Notes Reviewed: Yes Allergies: Coded Allergies: oxycodone HCl (Verified Allergy, Mild, vomiting, 04/28/16) marijuana (Verified Allergy, Unknown, seizure, breathing problems, 04/28/16 ) Uncoded Allergies: CONTROL PILL (Allergy, Mild, RASH, 07/05/14) Scheduled Citalopram (Citalopram) 40 Mg Tablet 40 MG PO DAILY Sertraline HCl (Zoloft) 50 Mg Tablet 50-100 MG PO DAILY Tamsulosin (Flomax) 0.4 Mg Capsule 0.4 MG PO DAILY Trazodone (Trazodone) 50 Mg Tablet 50 MG PO HS Scheduled PRN Hydrocodone-Acetaminophen 5-325 mg (Hydrocodone-Acetaminophen 5-325 mg) 1 Each Tablet 1 TABLET PO Q4H PRN PRN For Pain Naproxen (Naproxen) 500 Mg Tab 500 MG PO BID PRN PRN For Pain Prochlorperazine Maleate (Compazine) 10 Mg Tablet 10 MG PO TID PRN PRN For Headache General Time Seen by MD: 10:32 Chief Complaint Migraine headache Hx Obtained From: Patient Arrived By: Walk-in Sudden in Onset?: No Onset Occurred: 1 - 4 hours ago Symptom Duration: Since onset Location: : Generalized Quality: Painful Severity: Current: Moderate Severity: Maximum: Moderate Recent Healthcare: No recent doctor visit, No recent hospitalization Similar Sx Previous: Yes Past Medical History Past Medical History R ectopic PCOS Nephrolithiasis Kidney infection x1 Ovarian cyst summer 2013, with hospitalization for possible rupture Seizure (last 2012) site infection Migraines Past Surgical History Shoulder surgery Reports: , Cholecystectomy, Tonsillectomy Family History Noncontributory Smoking History Never Smoker Social History Alcohol Use: "Social" Drug Use: Denies drug use Other Social History: Lives with children, Local resident Occupation lives with boyfriend, work at [employer] Ambulatory Status Independent Review of Systems Eyes: Reports: Photophobia Ears / Nose / Throat: Reports: Sore throat GI: Reports: Nausea, Vomiting Neurologic: Reports: Headache, Denies: Focal weakness, Numbness, Slurred speech, Unable to speak, Vision change Complete sys rev & neg: except as marked. Respiratory: Denies: Non-productive cough, Prod cough, bloody, Prod cough, brown, Prod cough, clear, Prod cough, green, Prod cough, white, Prod cough, yellow Cardiovascular: Reports: Chest pain Physical Exam Initial Vital Signs Vital Signs (First) Date Time Temp Pulse Resp B/P Pulse Ox O2 Delivery O2 Flow Rate FiO2 05/31/16 10:15 36.1 80 16 126/84 96 Room Air Initial VS: Reviewed ENT: Mucous membranes moist, Conjunctiva normal, No scleral icterus Cardiovascular: Regular rate & rhythm, Heart sounds normal, Intact distal pulses Abdomen / GI: Soft, Non-tender, No guarding, No rebound, No distention Extremities: Vascular intact, Neuro intact, No swelling, No tenderness Skin: Warm, Dry, No cyanosis Psychiatric: Mood/affect normal, Behavior normal, Normal thought content General/Constitutional: Awake, Alert Head / Eyes: Atraumatic, Normocephalic, PERRL, EOMI Pupils: Positive: Photophobia L, Photophobia R Neck: Supple, No meningismus, Full range of motion, No swelling, Non-tender, No masses Neurologic: Oriented X3, Speech NL, No motor deficits, No sensory deficits, CN II - XII intact, Cerebellar NL Respiratory / Chest: Breath sounds NL, Breath sounds = bilat, No respiratory distress, No rales, No rhonchi, No wheezing, No retractions Reproducible chest wall tenderness Interpretation & Diagnostics ECG Interpretation ECG Interpretation: Normal sinus rhythm with a rate of 70 Normal EKG Time: 10:50 Interpreted by: ED physician X-Ray Chest Interpretation Chest Xray Interpretation: IMPRESSION: 1. 11 mm nodular opacity overlying the right upper lobe as above, appearing more conspicuous when compared to prior exam. Further evaluation with CT chest is recommended. 2. Minimal appearance of streaky opacity within the right base. This could represent atelectasis versus developing airspace disease such as pneumonia. Dictated by: Kritsina Monroe M.D. on 05/31/2016 at 11:18 Interpretation / Wet Read by: Interpret - Radiologist Re-Eval/Medical Decision Med Decision/Clinical Course Typical migraine for the patient. Treated with a usual cocktail. Additionally chest wall tenderness, does not sound like acute coronary syndrome or pulmonary embolism, EKG reassuring. Chest x-ray shows incidental nodule. Patient is made aware of the incidental lung nodule, recommended to follow up with a primary care doctor in the next week or so for CAT scan. Patient is also given a copy of her chest x-ray. Naproxen and Compazine prescribed for pain. Return precautions and follow-up precautions given. Source of Hx: Old records Re-Evaluation/Progress : Time of Eval: 11:34 Re-Evaluation/Progress Note: Rechecked the patient. She is feeling better. Discussed plan for discharge. All questions were addressed. Counseled Regarding: Diagnosis, Need for follow-up, When/why to return to ED Discharge & Departure Impression: Primary Impression: Migraine Migraine type: unspecified Status migrainosus presence: without status migrainosus Intractability: not intractable Qualified Code: G43.909 - Migraine, unspecified, not intractable, without status migrainosus Additional Impressions: Lung nodule Chest pain Chest pain type: unspecified Qualified Code: R07.9 - Chest pain, unspecified Disposition: Home Discharge Condition All VS Reviewed: Yes Condition: Stable Additional Instructions: Thank you for entrusting us with your care today. I am glad you are feeling better. Your chest x-ray showed evidence of a lung nodule. You need to followup with a primary care doctor in the next week or so to have a CT scan for further evaluation. Take Naproxen and Compazine as needed for migraine symptoms. Make sure to rest and drink plenty of fluids. Please return to the emergency department for any new or concerning symptoms. Referrals: Kai Beltrán (PCP) Sandyibrhoda Attestation Portions of this note were transcribed by Dinorah Collins. I, Dr. King personally performed the history, physical exam and medical decision-making; I reviewed and confirmed the accuracy of the information in the transcribed note. Signed by: Deisi Baer, 05/31/2016 at 1145. copies to: Kai Beltrán Timothy S DO Apr 14, 2017 10:33 Dinorah Collins May 31, 2016 10:39
[2016-05-31] MEDS ORDERED: 0.9% Sodium Chloride 1,000 ML IV ONE (10:38)
[2016-05-31] MEDS ORDERED: Ketorolac 15 mg/mL Inj IVPUSH ONE (10:40)
[2016-05-31] MEDS ORDERED: ProchlorPERazine 5 mg/mL 2 mL Inj IVPUSH ONE (10:40)
--- NOTE | 2016-05-31 11:23 | DRSVH ---
PROCEDURE: X-RAY CHEST, TWO VIEWS ([id number]) INDICATIONS: chest pain TECHNIQUE: 2 views of the chest were acquired. COMPARISON: [facility], CR, RIBS WILLOW W/PA CXR MIN 4VW, 11/09/2009, 16:35. [facility], CT, CHEST WITH CONTRAST, 11/09/2009, 18:00. [facility], CT, CT ABD PELVIS W C ON, 04/28/2016, 22:38. [facility], CR, XR CHEST 1VW (PORTABLE), 01/28/2016, 21:42. FINDINGS: Surgical changes and devices: Cholecystectomy clips. Lungs and pleura: No pleural effusions or pneumothorax. There is an 11 mm nodular opacity overlying the right upper lobe, appearing more conspicuous when compared to prior exam. There is a minimal appe arance of increased streaky opacity within the right base. Mediastinum: Mediastinal contours are normal. Heart size is normal. Bones and chest wall: No suspicious bony abnormalities. Soft tissues appear unremarkable. IMPRESSION: 1. 11 mm nodular opacity overlying the right upper lobe as above, appearing more conspicuous when com pared to prior exam. Further evaluation with CT chest is recommended. 2. Minimal appearance of streaky opacity within the right base. This could represent atelectasis malathi lavonne developing airspace disease such as pneumonia. Dictated by: Kristina Monroe M.D. on 05/31/2016 at 11:18 Approved by: Kristina Monroe M.D. on 05/31/2016 at 11:22
[2016-05-31] MEDS ORDERED: NPR500T PO (11:42)
[2016-05-31] MEDS ORDERED: PROC-4 PO (11:42)
[2016-05-31 11:58] VITALS: BP 110/70; PULSE 69; RESP 15; O2SAT 95
== END 2016-05-31 11:45 | disposition home or self-care (01) ==
LOC: SED 10:13
DX: G43.909 Migraine, unspecified, not intractable, without status migrainosus (principal); R91.1 Solitary pulmonary nodule; R07.9 Chest pain, unspecified; Z88.5 Allergy status to narcotic agent
CPT/HCPCS: 71020; 93005; 96361; 96374; 96375; 99284; J0780; J1200; J1885; J7030

== ENCOUNTER 2016-06-04 16:16 | Emergency (ER) | payer OTHER ==
[~2016-06-04] VITALS: Ht 172.7 cm; Wt 245.0 kg
[~2016-06-04 16:16] MED LIST changes: +NPR500T PO; +PROC-4 PO
[2016-06-04 16:25] VITALS: BP 116/75; PULSE 80; RESP 16; O2SAT 97
--- NOTE | 2016-06-04 16:34 | ED.REPORT ---
HPI-Trauma Multiple Date of Service Jun 04, 2016 ED Provider: Getachew Gasca MD The patient is a 35 year old female who presents to the emergency department complaining of tailbone pain and right wrist pain that occurred prior to arrival. The patient was at work when she tried to grab something that was up high, lost her footing and fell backwards. The patient landed on her tailbone and tried to catch herself with her right hand. At this time she complains of right wrist pain, tailbone pain, and pelvic bone pain. She did not hit her head or lose consciousness. She denies any other injuries. She was able to walk after the fall. Nursing Notes Stated Complaint: FELL AND INJURED BACK AND WRIST Chief Complaint: Multiple Trauma/Fall Nursing Notes Reviewed: Yes Allergies: Coded Allergies: marijuana (Verified Allergy, Unknown, seizure, breathing problems, 06/04/16 ) Uncoded Allergies: CONTROL PILL (Allergy, Mild, RASH, 07/05/14) Scheduled Citalopram (Citalopram) 40 Mg Tablet 40 MG PO DAILY Sertraline HCl (Zoloft) 50 Mg Tablet 50-100 MG PO DAILY Tamsulosin (Flomax) 0.4 Mg Capsule 0.4 MG PO DAILY Trazodone (Trazodone) 50 Mg Tablet 50 MG PO HS Scheduled PRN Hydrocodone-Acetaminophen 5-325 mg (Hydrocodone-Acetaminophen 5-325 mg) 1 Each Tablet 1 TABLET PO Q4H PRN PRN For Pain Hydrocodone-Acetaminophen 5-325 mg (Hydrocodone-Acetaminophen 5-325 mg) 1 Each Tablet 1 TABLET PO Q4H PRN PRN For Pain Naproxen (Naproxen) 500 Mg Tab 500 MG PO BID PRN PRN For Pain Prochlorperazine Maleate (Compazine) 10 Mg Tablet 10 MG PO TID PRN PRN For Headache General Time Seen by Provider: 16:56 Chief Complaint Extremity pain/injury, Other (back pain) Hx Obtained From: Patient Arrived By: Walk-in Onset Occurred: 1 - 4 hours ago Symptom Duration: Since onset Progression Since Onset: Constant Location: : Abdomen: Back: Wrist right Quality: Painful Severity: Current: Severe Severity: Maximum: Severe Recent Healthcare: No recent doctor visit, No recent hospitalization Similar Sx Previous: No Past Medical History Past Medical History R ectopic PCOS Nephrolithiasis Kidney infection x1 Ovarian cyst summer 2013, with hospitalization for possible rupture Seizure (last 2012) site infection Migraines Past Surgical History Shoulder surgery Reports: , Cholecystectomy, Tonsillectomy Family History Noncontributory Smoking History Never Smoker Social History Alcohol Use: "Social" Drug Use: Denies drug use Other Social History: Lives with children, Local resident Occupation lives with boyfriend, work at [employer] Ambulatory Status Independent Review of Systems GI: Reports: Abdominal pain Musculoskeletal: Reports: Back pain, Extremity pain, Joint pain Neurologic: Denies: Change LOC, Headache Complete sys rev & neg: except as marked. Physical Exam Initial Vital Signs Vital Signs (First) Date Time Temp Pulse Resp B/P Pulse Ox O2 Delivery O2 Flow Rate FiO2 06/04/16 16:25 36.3 80 16 116/75 97 Room Air Initial VS: Reviewed ENT: Mucous membranes moist, Conjunctiva normal, No scleral icterus Extremities: Vascular intact, Neuro intact, No swelling Skin: Warm, Dry, No cyanosis Psychiatric: Mood/affect normal, Behavior normal, Normal thought content General/Constitutional: Awake, Alert, Cooperative Head / Eyes: Atraumatic, Normocephalic, PERRL, EOMI Neck: Atraumatic, No meningismus, Full range of motion, No midline vertebral tend Respiratory / Chest: Atraumatic, Breath sounds NL, Breath sounds = bilat, No respiratory distress, No rales, No rhonchi, No wheezing, No stridor, No chest tenderness, No chest wall deformity, No crepitus Cardiovascular: Heart rate NL, Regular rhythm, Heart sounds NL, Cap refill not delayed, Peripheral circulation NL Abdomen: Atraumatic, Soft, No guarding, No rebound, BS normoactive, No distention Tenderness at the pubic symphysis as well as the right hip region. No palpable deformities. BACK: Diffuse tenderness about the sacral region. No palpable deformity, stepoff or ecchymosis. Neurologic: Oriented X3, Speech NL, No motor deficits, No sensory deficits, Cerebellar NL, Memory NL Upper Extremity / MS: Atraumatic, Inspection NL, Full range of motion, No deformity, Neurologic intact, Vascular intact Wrist / Hand: Neurologic intact, Vascular intact Tenderness at the right distal wrist. Fingers are warm and well perfused. Good pulses. No obvious deformity. Lower Extremity / Pelvis / MS: Atraumatic, Inspection NL, Full range of motion , Neurologic intact, Vascular intact Good DP and PT pulses. Sensation intact. Interpretation & Diagnostics Lab Results Interpretation Result Diagram: 06/04/16 1718 06/04/16 1718 Test 06/04/16 17:18 White Blood Count 7.1th/mm3 (3.8-10.1) Red Blood Count 4.61mil/mm3 (3.90-5.20) Hemoglobin 13.5g/dL (12.0-15.6) Hematocrit 39.9% (35.0-46.0) Mean Corpuscular Volume 86.6fL (81-100) Mean Corpuscular Hemoglobin 29.3pg (27.0-35.0) Mean Corpuscular Hemoglobin Concent 33.8% (32.0-37.0) Red Cell Distribution Width 13.1% (12.3-15.4) Platelet Count 370bil/L (150-400) Neutrophils (%) (Auto) 64.6% (40-74) Lymphocytes (%) (Auto) 25.4% (14-46) Monocytes (%) (Auto) 5.5% (4-12) Eosinophils (%) (Auto) 3.8% (0-5) Basophils (%) (Auto) 0.6% (0-3) Prothrombin Time 9.6sec (8.1-12.5) Prothromb Time International Ratio 0.90ratio Sodium Level 138mEq/L (134-144) Potassium Level 4.1mEq/L (3.5-5.2) Chloride Level 100mEq/L (97-108) Carbon Dioxide Level 21mmol/L (18-29) Blood Urea Nitrogen 13mg/dL (6-20) Creatinine 0.64mg/dL (0.57-1.00) Estimat Glomerular Filtration Rate 152mL/min (>59) Glucose Level 113mg/dL (60-99) Calcium Level 9.5mg/dL (8.5-10.1) Total Bilirubin 0.3mg/dL (0.0-1.2) Aspartate Amino Transf (AST/SGOT) 19U/L (0-50) Alanine Aminotransferase (ALT/SGPT) 17U/L (0-32) Alkaline Phosphatase 84U/L (25-150) Total Protein 7.5g/dL (6.4-8.4) Albumin 4.3g/dL (3.4-5.0) Human Chorionic Gonadotropin, Qual Negative (Negative) Hold [place]o Top Tube Received (Received) X-Ray Interpretation Xray Interpretation: IMPRESSION: No trauma found. If there is clinical concern for presence of hidden fracture follow-up by delayed plain films or advanced imaging, such as CT or MRI, could be obtained. The normal superimposition of many osseous margins in this area reduces the study's ability to detect nondisplaced fractures. Dictated by: Angel Rdz M.D. on 06/04/2016 at 18:23 X-Ray Ordered: Wrist right Interpretation / Wet Read by: Interpret - Radiologist Xray Interpretation: No trauma found. Dictated by: Angel Rdz M.D. on 06/04/2016 at 18:21 X-Ray Ordered: Pelvis Interpretation / Wet Read by: Interpret - Radiologist Xray Interpretation: IMPRESSION: No trauma found. Degenerative disc disease at L5-S1 is mild as indicated by disc height reduction.. Dictated by: Angel Rdz M.D. on 06/04/2016 at 18:20 Study Performed: Lumbar spine Interpretation / Wet Read by: Interpret - Radiologist Xray Interpretation: IMPRESSION: No trauma found. Dictated by: Angel Rdz M.D. on 06/04/2016 at 18:22 X-Ray Ordered: Hip right Interpretation / Wet Read by: Interpret - Radiologist Re-Eval/Medical Decision Med Decision/Clinical Course The patient is a 35 year old female who presents to the emergency department complaining of tailbone pain and right wrist pain that occurred prior to arrival. The patient was at work when she tried to grab something that was up high, lost her footing and fell backwards. The patient landed on her tailbone and tried to catch herself with her right hand. At this time she complains of right wrist pain, tailbone pain, and pelvic bone pain. She did not hit her head or lose consciousness. She denies any other injuries. She was able to walk after the fall. Here in the emergency department the patient appears uncomfortable though she is otherwise hemodynamically stable and afebrile. IV access was obtained and she was treated with IV fluids, Zofran for nausea and hydromorphone for pain. Urine : negative LABS: CBC unremarkable, CMP unremarkable, preg neg, coags nl Right wrist x-ray: negative Pelvis x-ray: negative Lumbar spine x-ray: negative Right hip x-ray: negative Full head to toe trauma survey was performed and demonstrated findings notable as above. Imaging studies were obtained as above and demonstrated no acute fractures or injuries. She is neurovascularly intact in all 4 extremities and tertiary survey remained unrevealing. She was able to ambulate normally despite her pain at this time I see no findings of any significant injury. She is advised to follow up closely with her primary care physician and return should she develop any worsening or persistent symptoms. At this time I see no indication that the patient requires admission or further immediate workup. Prior to discharge follow-up and return precautions were reviewed in detail with the patient who verbalized understanding and agreement with the plan. The patient was discharged in stable condition. She has been prescribed a limited supply of Bowie for pain. Source of Hx: Old records Re-Evaluation/Progress : Time of Eval: 18:32 Re-Evaluation/Progress Note: Discussed results, diagnosis, and plan for discharge. All questions were addressed. Counseled Regarding: Diagnosis, Lab results, Need for follow-up, When/why to return to ED Discharge & Departure Impression: Primary Impression: Fall from ground level Additional Impressions: Right wrist injury Encounter type: initial encounter Qualified Code: S69.91XA - Unspecified injury of right wrist, hand and finger(s), initial encounter Sacral pain Disposition: Home Discharge Condition All VS Reviewed: Yes Condition: Stable Additional Instructions: Thank you for seeking care at the emergency room. Our primary goal today in the ED was to evaluate you for any life-threatening conditions. Your evaluation was reassuring. Take ibuprofen as needed for your pain. I have prescribed Vicodin for breakthrough pain. You should follow-up with your primary doctor in the next week if your pain continues. You should return to the ED immediately if you develop increased pain or any other concerning signs or symptoms. Thank you for letting us partake in your care today. Narcotic Pain Medicine You have been prescribed a narcotic for pain relief. These drugs are usually combined with acetaminophen (Tylenol#3, Percocet, Darvocet, Anexsia, Vicodin) or aspirin (Empirin#3, Percodan, Synalogs-DC) for increased effect. Narcotics act on the central nervous system to reduce pain; they also impair mental alertness and physical abilities. We advise you not to drink alcohol, drive a car, or operate dangerous equipment when you are taking these drugs. You can lessen stomach irritation from your medicine by taking it with meals or a full glass of water. Common side effects of narcotics are: Nausea and vomiting , heartburn, constipation, dizziness, sleepiness, and mood changes. If you have bothersome side effects or symptoms of an allergic reaction (itching, hives, rash), stop taking your medicine and call your doctor or the emergency room right away. Please keep your narcotic medicine well out of the reach of children. Referrals: NOPCP (PCP) Scribe Attestation Portions of this note were transcribed by Dinorah Collins. I, Dr. Gasca personally performed the history, physical exam and medical decision-making; I reviewed and confirmed the accuracy of the information in the transcribed note. Signed by: Deisi Baer, 06/04/2016 at 1905. Getachew Gasca MD Jun 04, 2016 16:34 Dinorah Collins Jun 04, 2016 17:02
[2016-06-04] MEDS ORDERED: 0.9% Sodium Chloride 1,000 ML IV ONE (17:04)
[2016-06-04] MEDS ORDERED: Ondansetron 2 mg/mL 2 mL Inj IVPUSH ONE (17:05)
[2016-06-04] MEDS: HYDROmorphone 0.5 mg/0.5 mL iSecure Syringe IVPUSH PRN ×3 (17:27→18:37)
[2016-06-04 17:32] LABS: BASOPHILS % (AUTO) 0.6 % (0-3); EOSINOPHILS % (AUTO) 3.8 % (0-5); MONOCYTES % (AUTO) 5.5 % (4-12); Mean Corpuscular Hemoglobin 29.3 pg (27.0-35.0); Mean Corpuscular Volume 86.6 fL (81-100); NEUTROPHILS % (AUTO) 64.6 % (40-74); Platelet Count 370 bil/L (150-400)
[2016-06-04 17:52] LABS: INR 0.9 ratio
--- NOTE | 2016-06-04 18:23 | DRSVH ---
PROCEDURE: X-RAY LUMBAR SPINE, 2 OR 3 VIEW INDICATIONS: r hip/sacral pain TECHNIQUE: 3 views of the lumbar spine were acquired. COMPARISON: None. FINDINGS: Bones: 5 [id number] vertebrae are present. There is normal bony alignment. No vertebral body compression fractures. No suspicious bony lesions. Mild disc height reduction at L5-S1. Soft tissues: Overlying bowel gas pattern is normal. No suspicious soft tissue calcifications. IMPRESSION: No trauma found. Degenerative disc disease at L5-S1 is mild as indicated by disc height reduction.. Dictated by: Angel Rdz M.D. on 06/04/2016 at 18:20 Approved by: Angel Rdz M.D. on 06/04/2016 at 18:21
--- NOTE | 2016-06-04 18:24 | DRSVH ---
PROCEDURE: X-RAY PELVIS, ONE OR TWO VIEWS ([id number]) INDICATIONS: r hip/sacral pain TECHNIQUE: 2 view(s) of the pelvis acquired. COMPARISON: [facility], CR, XR LUMBAR SPINE 2 OR 3VW, 06/04/2016, 17:16. [facility], CT, CT ABD PELVIS W CON, 04/28/2016, 22:38. FINDINGS: Bones: No fractures or dislocations. No suspicious bony lesions. Soft tissues: Visualized bowel gas pattern is normal. No suspicious soft tissue calcifications. IMPRESSION: No trauma found. Dictated by: Angel Rdz M.D. on 06/04/2016 at 18:21 Approved by: Angel Rdz M.D. on 06/04/2016 at 18:22
--- NOTE | 2016-06-04 18:24 | DRSVH ---
PROCEDURE: X-RAY RIGHT HIP COMPLETE, MINIMUM TWO VIEWS ([id number]) INDICATIONS: r hip/sacral pain TECHNIQUE: 2 views of the hip were acquired. COMPARISON: [facility], CR, XR PELVIS 1 OR 2VW, 06/04/2016, 17:16. Merged With [facility] l, CT, CT ABD PELVIS W CON, 04/28/2016, 22:38. FINDINGS: Bones: No fractures or dislocations. No suspicious bony lesions. The visualized pelvic ring appear s intact. Soft tissues: No suspicious soft tissue calcifications or masses. IMPRESSION: No trauma found. Dictated by: Angel Rdz M.D. on 06/04/2016 at 18:22 Approved by: Angel Rdz M.D. on 06/04/2016 at 18:22
--- NOTE | 2016-06-04 18:25 | DRSVH ---
PROCEDURE: X-RAY RIGHT WRIST COMPLETE, MINIMUM THREE VIEWS ([id number]) INDICATIONS: fall, r hip/sacral pain TECHNIQUE: 4 views of the wrist were acquired. COMPARISON: None. FINDINGS: Bones: No fractures or dislocations. No suspicious bony lesions. Scaphoid view: No trauma to the scaphoid is found. Soft tissues: No suspicious soft tissue calcifications. IMPRESSION: No trauma found. If there is clinical concern for presence of hidden fracture follow-up by delayed plain films or advanced imaging, such as CT or MRI, could be obtained. The normal superi mposition of many osseous margins in this area reduces the study's ability to detect nondisplaced fra ctures. Dictated by: Angel Rdz M.D. on 06/04/2016 at 18:23 Approved by: Angel Rdz M.D. on 06/04/2016 at 18:23
[2016-06-04] MEDS ORDERED: HYDR-4003 PO (18:58)
[2016-06-04] MEDS ORDERED: HYDROcodone-APAP 5-325 mg Tablet PO ONE (19:20)
[2016-06-04 19:29] VITALS: BP 128/64; PULSE 78; RESP 14; O2SAT 99
== END 2016-06-04 19:32 | disposition home or self-care (01) ==
LOC: SED 16:16
DX: S69.91XA Unspecified injury of right wrist, hand and finger(s), initial encounter (principal); S30.0XXA Contusion of lower back and pelvis, initial encounter; W18.30XA Fall on same level, unspecified, initial encounter; Y93.89 Activity, other specified; Y92.69 Other specified industrial and construction area as the place of occurrence of the external cause; Y99.0 Civilian activity done for income or pay; M53.3 Sacrococcygeal disorders, not elsewhere classified; Z88.8 Allergy status to other drugs, medicaments and biological substances
CPT/HCPCS: 36415; 72100; 72170; 73110; 73502; 80053; 81002; 81025; 84703; 85025; 85610; 86850; 96361; 96374; 96375; 96376; 99285; J1170; J2405; J7030